=== PATIENT | female | born 1985 | race Caucasian/White ===

== ENCOUNTER 2022-06-13 03:28 | Emergency (ER) | payer BC ==
[2022-06-13] MEDS ORDERED: Ondansetron 4 MG Tab.DIS PO ONE (03:29)
[2022-06-13] MEDS ORDERED: Ondansetron 4 MG/2 ML SDV IVPUSH ONE (03:36)
[2022-06-13] MEDS ORDERED: Sodium Chloride 0.9% 1,000 ML IV ONE (03:36)
[2022-06-13] MEDS ORDERED: Sodium Chloride 0.9% 10 ML Syringe FLUSH PRN (03:36)
[2022-06-13 04:55] LABS: ANION GAP 16.5 mEq/L (7-13); CHLORIDE,CL 107 mmol/L (98-107); SODIUM,NA 145 mmol/L (136-145)
[2022-06-13 04:56] LABS: ESTIMATED GFR 114 mL/min (>=60)
[2022-06-13] MEDS ORDERED: Metoclopramide 10 MG/2 ML SDV IVPUSH ONE (05:14)
[2022-06-13] MEDS ORDERED: Ketorolac 30 MG/ML SDV IVPUSH ONE (05:16)
[2022-06-13] MEDS ORDERED: Ondansetron 4 MG Tab.DIS PO SCH (05:45)
[2022-06-13] MEDS ORDERED: Ondansetron 4 MG Tab.DIS ONE (06:17)
== END 2022-06-13 07:05 | disposition home or self-care (01) ==
LOC: DL.ED 03:28
DX: K52.9 Noninfective gastroenteritis and colitis, unspecified (principal); K90.49 Malabsorption due to intolerance, not elsewhere classified; F10.129 Alcohol abuse with intoxication, unspecified; Y90.2 Blood alcohol level of 40-59 mg/100 ml
CPT/HCPCS: 36415; 80053; 80307; 83690; 83735; 85025; 96361; 96374; 96375; 99284; A9270; J1885; J2405; J2765; J3490; J7030; 99283